=== PATIENT | male | born 1950 | race Caucasian/White ===

== ENCOUNTER 2017-11-19 16:53 | Emergency (ER) | payer MEDICARE, OTHER ==
[~2017-11-19] VITALS: Ht 172.7 cm; Wt 70.0 kg
[~2017-11-19 16:53] MED LIST: AMLO2.5T45 GT; AMLO5TAB4 PO; ATOR20TA65 GT; CLON0.1T GT; KEPP500 GT
[2017-11-19 19:01] LABS: BASOPHILS % 0.5 % (0.0-2.0); EOSINOPHILS % 2.1 % (0.0-5.0); HEMATOCRIT. 50.5 % (42.0-52.0); HEMOGLOBIN. 17.7 g/dL (14.0-18.0); LYMPHOCYTES % 28.8 % (20.0-50.0); MEAN CORPUSCULAR HEMOGLOBIN 32.6 pg (28.0-32.0); MEAN CORPUSCULAR VOLUME 92.8 fL (80.0-94.0); MONOCYTES % 10.3 % (2.0-8.0); NEUTROPHILS % 58.3 % (40.0-76.0); PLATELET 180 x1000/uL (130-400); RED BLOOD CELL COUNT 5.44 mill/uL (4.7-6.1); RED CELL DISTRIBUTION WIDTH 14.2 % (11.6-14.6)
[2017-11-19 19:05] LABS: CHLORIDE 100 mEq/L (98-107)
[2017-11-19 19:06] LABS: INR 1.1; PROTHROMBIN TIME 11.4 sec (9.4-11.6)
[2017-11-19 23:48] VITALS: BP 150/81
[2017-11-21] MEDS ORDERED: MULT-1146 GT (00:33)
[2017-11-21] MEDS ORDERED: VALP250S5 GT (00:33)
[2017-11-21] MEDS ORDERED: MOM GT (00:33)
[2017-11-21] MEDS ORDERED: [UNRECOGNIZED DRUG - CODE] GT (00:33)
== END 2017-11-19 23:50 | disposition home or self-care (01) ==
LOC: ER 17:11
DX: K94.23 Gastrostomy malfunction (principal); N40.0 Benign prostatic hyperplasia without lower urinary tract symptoms; I10 Essential (primary) hypertension; E78.00 Pure hypercholesterolemia, unspecified; Z86.73 Personal history of transient ischemic attack (TIA), and cerebral infarction without residual deficits; Z88.2 Allergy status to sulfonamides
CPT/HCPCS: 36415; 80053; 85025; 85610; 99284